=== PATIENT | female | born 1955 | race Caucasian/White ===

== ENCOUNTER 2019-09-08 10:34 | Outpatient (CLI) | payer OTHER ==
[~2019-09-08 10:34] MED LIST: DICLOFENAC SODI50 MG PO; VOLTAREN100 GM
== END 2019-09-08 10:40 | disposition home or self-care (01) ==
LOC: RAD 10:34
DX: M25.531 Pain in right wrist (principal); M79.641 Pain in right hand

== ENCOUNTER 2021-06-24 09:56 | Outpatient (CLI) | payer OTHER | END 2021-06-24 10:02 | disposition home or self-care (01) | LOC: RAD 09:56 | PROVIDERS: ATTEND Orthopaedic Surgery | DX: M25.561 Pain in right knee (principal); M25.562 Pain in left knee ==